=== PATIENT | female | born 1955 | race Caucasian/White ===

== ENCOUNTER → 2017-03-19 | Outpatient (CLI) | payer BC | LOC: MC.RAD 10:11 | DX: Z12.31 Encounter for screening mammogram for malignant neoplasm of breast (principal) ==

== ENCOUNTER → 2018-03-22 | Outpatient (CLI) | payer BC | LOC: MC.RAD 09:19 | DX: Z12.31 Encounter for screening mammogram for malignant neoplasm of breast (principal) ==

== ENCOUNTER → 2019-03-20 | Outpatient (CLI) | payer BC | LOC: MC.RAD 03-15 11:30 | DX: Z12.31 Encounter for screening mammogram for malignant neoplasm of breast (principal) ==

== ENCOUNTER → 2020-04-11 | Outpatient (CLI) | payer BC | LOC: MC.RAD 03-22 09:45 | DX: Z12.31 Encounter for screening mammogram for malignant neoplasm of breast (principal) ==

== ENCOUNTER 2020-11-08 08:51 | Day surgery (SDC) | payer BC ==
[~2020-11-08] VITALS: Ht 170.2 cm; Wt 99.1 kg
[2020-11-08 09:46] VITALS: BP 143/75; PULSE 76; TEMP 98.2
[2020-11-08] MEDS ORDERED: AMARYL1 MG PO (09:55)
[2020-11-08] MEDS ORDERED: COZAAR 25MG25 MG/TAB PO (09:55)
[2020-11-08] MEDS ORDERED: LIPITOR 10MG10 MG PO (09:56)
[2020-11-08] MEDS ORDERED: JARDIANCE25 PO (09:58)
[2020-11-08] MEDS ORDERED: SYNTHROID0.05 MG/TA PO (09:58)
[2020-11-08] MEDS ORDERED: GLUCOPHAGE500 MG/TAB PO (09:59)
[2020-11-08] MEDS ORDERED: VITAMIN C500 MG PO (10:00)
[2020-11-08] MEDS ORDERED: B COMPLEX #11 TA1 PO (10:00)
[2020-11-08] MEDS ORDERED: VITAMIND3 5000 PO (10:01)
[2020-11-08] MEDS ORDERED: OMEGA-3 1000 MG1 CAP PO (10:01)
[2020-11-08] MEDS ORDERED: THE MEDICINE S200 M2 PO (10:02)
[2020-11-08 10:25] VITALS: BP 121/73; PULSE 79; TEMP 97.6
--- NOTE | 2020-11-08 10:25 | NUR ---
PT BACK TO ENDOSCOPY BAY VIA CART ACCOMPANIED BY JORGE NICHOLSON. PT AMBULATES TO CHAIR WITH STANDBY ASSIST, GAIT STABLE. PT ALERT AND ORIENTED. ABDOMEN SOFT, NON-TENDER. PT DENIES PAIN OR NAUSEA. RESTING IN CHAIR, CALL LIGHT IN REACH. IVF INFUSING.
[2020-11-08 10:30] VITALS: BP 119/70; PULSE 68
--- NOTE | 2020-11-08 10:30 | NUR ---
GLASS OF WATER AND BLUEBERRY MUFFIN PROVIDED. PT DENIES FURTHER NEEDS OR COMPLAINTS AT THIS TIME. CALL LIGHT IN REACH.
[2020-11-08 10:45] VITALS: BP 119/68; PULSE 63
--- NOTE | 2020-11-08 10:45 | NUR ---
PT TOLERATES WATER WITHOUT DIFFICULY. PT REPORTS FEELING GREAT, DENIES PAIN OR NAUSEA. IV DISCONTINUED. PT UP AND CHANGED INTO PERSONAL CLOTHING.
--- NOTE | 2020-11-08 11:20 | NUR ---
DISCHARGE INSTRUCTIONS PROVIDED. PT VERBALIZES UNDERSTANDING, DENIES FURTHER QUESTIONS OR COMPLAINTS. PT CALLED TO LET SON KNOW SHE WAS READY TO LEAVE.
--- NOTE | 2020-11-08 11:25 | NUR ---
PT DISCHARGED VIA WHEEL CHAIR TO PRIVATE VEHICLE. SON DRIVING. DISCHARGE PACKET WELL BELONGINGS SENT HOME WITH PT.
== END 2020-11-08 11:25 | disposition home or self-care (01) ==
LOC: SDCO 08:51
DX: Z12.11 Encounter for screening for malignant neoplasm of colon (principal); Z86.010 Personal history of colon polyps; K64.1 Second degree hemorrhoids; E03.9 Hypothyroidism, unspecified; E11.9 Type 2 diabetes mellitus without complications; Z90.721 Acquired absence of ovaries, unilateral; Z88.8 Allergy status to other drugs, medicaments and biological substances; E78.5 Hyperlipidemia, unspecified; Z79.4 Long term (current) use of insulin
CPT/HCPCS: J2704; J7030

== ENCOUNTER → 2021-04-14 | Outpatient (CLI) | payer BC ==
[~2021-04-14] MED LIST: AMARYL1 MG PO; B COMPLEX #11 TA1 PO; COZAAR 25MG25 MG/TAB PO; GLUCOPHAGE500 MG/TAB PO; JARDIANCE25 PO; LIPITOR 10MG10 MG PO; OMEGA-3 1000 MG1 CAP PO; SYNTHROID0.05 MG/TA PO; THE MEDICINE S200 M2 PO; VITAMIN C500 MG PO; VITAMIND3 5000 PO
== END ==
LOC: MC.RAD 09:17
DX: Z12.31 Encounter for screening mammogram for malignant neoplasm of breast (principal); N64.89 Other specified disorders of breast

== ENCOUNTER → 2021-04-17 | Outpatient (CLI) | payer BC | LOC: MC.RAD 13:00 | DX: N64.89 Other specified disorders of breast (principal) ==